=== PATIENT | female | born 1970 | race African-American/Black ===

== ENCOUNTER 2017-10-28 13:01 | Outpatient (CLI) | payer MEDICAID ==
[2013-02-07 17:39] VITALS: BP 138/75
== END 2017-10-28 13:02 ==
LOC: LABRHC 13:01
PROVIDERS: ATTEND Physician Assistant
DX: Z12.4 Encounter for screening for malignant neoplasm of cervix (principal)
CPT/HCPCS: 88148; G0143

== ENCOUNTER 2018-09-24 09:44 | Emergency (ER) | payer OTHER ==
[2018-09-24 10:01] VITALS: BP 120/87
[2018-09-24 10:29] LABS: MEAN CORPUSCULAR HEMOGLOBIN 25.1 pg (28.0-34.0)
[2018-09-24 10:30] LABS: BASOPHILS % 0.6 (0.0-1.5); EOSINOPHILS % 2.5 % (0.0-6.8); NEUTROPHILS # 6.3 # k/uL (1.4-7.7)
[2018-09-24 10:56] LABS: eGFR (Non-African) > 60
--- NOTE | 2018-09-24 11:34 | ED Physician Documentation ---
General Adult - HISTORIAN Historian: patient - HPI Stated Complaint: R leg pain Chief Complaint: General Adult Further Comments: yes (48 year old female patient presents with complaint of numbness on right side of body, pain in right inner ankle and fatigue. Patient states she noticed the pain in her ankle this morning, worse with walking and "now there is a knot". Patient states she noticed numbness in her right side. Denies chest pain; reports intermittent shortness of breath and fatigue.) - ROS CONST: weakness. denies: fever, sweating, recent illness, weight loss, chills EYES/ENT: none CVS/RESP: shortness of breath (intermittent). denies: chest pain, cough GI/: none MS/SKIN/LYMPH: ankle swelling (right inner ankle) NEURO/PSYCH: denies: headache, fainting, dizziness, tingling, numbness, difficulty walking, difficulty with speech, anxiety, depression, other - PAST HX Past History: hypertension Surgeries/Procedures: BTL, other (perimenopausal) Allergies/Adverse Reactions: Allergies Allergy/AdvReac Type Severity Reaction Status Date / Time Penicillins Allergy Intermediate Rash Verified 09/24/18 09:58 - SOCIAL HX Smoking History: non-smoker - FAMILY HX Family History: Yes (Mother of colon cancer; multiple secondary family members w colon CA.) - VITAL SIGNS Vital Signs: Vital Signs Temp Pulse Resp BP Pulse Ox 68 16 120/87 100 09/24/18 11:30 09/24/18 09:50 09/24/18 09:50 09/24/18 11:30 - REVIEWED ASSESSMENTS Nursing Assessment Reviewed: Yes Vitals Reviewed: Yes Progress - Progress Progress: Lab work reviewed; history reviewed. Last Hemoglobin 14.5 in 2014. Discussed at length with patient; denies vaginal bleeding; denies black or tarry stools. Case discussed with Dr Sanabria. Will progress with iron studies; repeat H/H in the AM. Appointment on Friday. Discussed family history. Patient's mother 10 years ago today from colon CA. Multiple secondary family members with colon ca; polyps. Has not had a colonoscopy. Alexandre palmer applied. ED Results Lab/Radiology - Lab Results Lab Results: Lab Results 09/24/18 09/24/18 09/24/18 10:20 10:20 10:20 WBC 8.90 K/ul K/ul (4.00-12.00) RBC 3.79 M/ul L M/ul (3.90-5.20) Hgb 9.5 g/dL L g/dL (12.0-16.0) Hct 29.1 % L % (34.5-46.5) MCV 77.0 fl L fl (80.0-100.0) MCH 25.1 pg L pg (28.0-34.0) MCHC 32.6 g/dL g/dL (30.0-36.0) RDW 13.2 % % (11.3-14.3) Plt Count 375 K/mm3 K/mm3 (130-400) Neut % (Auto) 71.4 % % (39.0-79.0) Lymph % (Auto) 20.5 % % (16.0-50.0) Wy[place] % (Auto) 5.0 % % (0.0-11.0) Eos % (Auto) 2.5 % % (0.0-6.8) Baso % (Auto) 0.6 (0.0-1.5) Neut # (Auto) 6.3 # k/uL # k/uL (1.4-7.7) Lymph # (Auto) 1.8 # k/uL # k/uL (0.6-4.0) Wythe # (Auto) 0.4 # k/uL # k/uL (0.0-0.9) Eos # (Auto) 0.2 # k/uL # k/uL (0.0-0.6) Baso # (Auto) 0.1 # k/uL # k/uL (0.0-0.5) Sodium 142 mmol/L mmol/L (136-145) Potassium 3.6 mmol/L mmol/L (3.5-5.1) Chloride 102 mmol/L mmol/L (98-107) Carbon Dioxide 28 mmol/L mmol/L (22-30) BUN 9 mg/dL mg/dL (7-17) Creatinine 0.67 mg/dL mg/dL (0.52-1.04) Estimated Creat Clear 143 Est GFR ( Amer) > 60 (60 - ) Est GFR (Non-Af Amer) > 60 (60 - ) Glucose 96 mg/dL mg/dL (74-106) Calcium 9.4 mg/dL mg/dL (8.4-10.2) Total Bilirubin 0.3 mg/dL mg/dL (0.2-1.3) AST 26 U/L U/L (15-46) ALT 24 U/L U/L (13-69) Alkaline Phosphatase 111 U/L U/L (38-126) Troponin I < 0.03 ng/mL L ng/mL (0.03-0.06) Total Protein 6.6 g/dL g/dL (6.3-8.2) Albumin 4.0 g/dL g/dL (3.5-5.0) - Orders Orders: ED Orders Category Date Time Status Continuous EKG monitoring Q30M Care 09/24/18 10:16 Active Continuous Pulse Oximetry Q30M Care 09/24/18 10:[address] IV Lock 1T Care 09/24/18 10:16 Active CBC/PLATELET/DIFF Stat Lab 09/24/18 10:20 Completed CMP Stat Lab 09/24/18 10:20 Completed FERRITIN Stat Lab 09/24/18 Ordered IRON BINDING CAPACITY Stat Lab 09/24/18 Ordered IRON SERUM Stat Lab 09/24/18 Ordered TROPONIN I (cTnI) Stat Lab 09/24/18 10:20 Completed EKG WITH COMPARISON Stat Ther 09/24/18 10:16 Ordered General Adult Physical Exam - PHYSICAL EXAM GENERAL APPEARANCE: mild distress EENT: eye inspection normal, ENT inspection normal, pharynx normal, no signs of dehydration, YULIYA, no nystagmus, TM's nml RESPIRATORY: no resp distress, chest non-tender, breath sounds normal CVS: reg rate & rhythm, heart sounds normal, equal pulses, no murmur, no gallop, PMI nml, no JVD, no friction rub, 24 ABDOMEN: soft, no organomegaly, normal bowel sounds, no abdominal bruit, no distension SKIN: normal color, warm/dry, NR, INT, PAL, DR EXTREMITIES: non-tender, normal range of motion, no evidence of injury, no edema, other (right medial ankle with varicose veins - tender to mild palpation) NEURO: oriented X3, CN's nml as tested, motor nml, sensation nml, mood/affect nml, other (right side - 2 point discrimination intact; sharp and dull intact; no neuro deficit noted. ) Discharge Clincal Impression: varicose veins of ankle Anemia Qualifiers: Anemia type: unspecified type Qualified Code(s): D64.9 - Anemia, unspecified Fatigue Qualifiers: Fatigue type: unspecified Qualified Code(s): R53.83 - Other fatigue Referrals: Melodie Sanabria MD [Primary Care Provider] - 2 Days Additional Instructions: Return in the morning for lab Appointment with Dr Sanabria on Friday, Sep at 2:00pm Discuss outpatient treatment of varicose veins with Dr Sanabria. Return to ER if you have difficulty with speech, cannot move your arm or leg, drooping face, chest pain or shortness of breath or if your symptoms become worse. Condition: Stable Disposition: 01 HOME, SELF-CARE Decision to Admit: NO Decision Time: 11:37
== END 2018-09-24 11:50 | disposition home or self-care (01) ==
LOC: ED 09:44
DX: I83.91 Asymptomatic varicose veins of right lower extremity (principal); D64.9 Anemia, unspecified; R53.83 Other fatigue
CPT/HCPCS: 36415; 80053; 82272; 82728; 83540; 83550; 84484; 85025; 99282; 99283; S1016

== ENCOUNTER 2018-09-25 11:26 | Outpatient (CLI) | payer OTHER ==
[2018-09-24 10:01] VITALS: BP 120/87
[2018-09-25 12:21] LABS: MEAN CORPUSCULAR HEMOGLOBIN 24.5 pg (28.0-34.0)
== END 2018-09-25 11:35 ==
LOC: LAB 11:26
PROVIDERS: ATTEND Emergency Medicine
DX: D64.9 Anemia, unspecified (principal)
CPT/HCPCS: 36415; 85014; 85018

== ENCOUNTER 2018-09-28 12:13 | Outpatient (CLI) | payer OTHER ==
[2018-09-28 12:47] LABS: BASOPHILS % 0.6 (0.0-1.5); EOSINOPHILS % 1.9 % (0.0-6.8); MEAN CORPUSCULAR HEMOGLOBIN 23.9 pg (28.0-34.0); MONOCYTES % 3.4 % (0.0-11.0)
[2018-09-28 12:48] LABS: NEUTROPHILS # 7.4 # k/uL (1.4-7.7)
[2018-09-28 12:54] LABS: ANISOCYTOSIS 1+ (NEGATIVE)
[2018-09-28 12:55] LABS: STOMATOCYTES 1+ (NEGATIVE); TARGET CELLS 1+ (NEGATIVE)
== END 2018-09-28 12:14 ==
LOC: LAB 12:13
PROVIDERS: ATTEND Family Medicine
DX: D50.9 Iron deficiency anemia, unspecified (principal)
CPT/HCPCS: 36415; 85025